=== PATIENT | male | born 1935 | race Caucasian/White ===

== ENCOUNTER 2016-03-09 17:46 | Emergency (ER) | payer OTHER ==
[~2016-03-09] VITALS: Wt 65.9 kg
[2016-03-09] MEDS ORDERED: ACETAMINOPHEN 500 MG TAB PO STA (18:49)
[2016-03-09] MEDS ORDERED: IBUPROFEN 600 MG TAB PO ONE (19:00)
[2016-03-09] MEDS ORDERED: UDROBDM PO (19:14)
[2016-03-09] MEDS ORDERED: DOXY100T20 PO (19:14)
[2016-03-09] MEDS ORDERED: THO25 PO (19:14)
[2016-03-09 19:27] VITALS: BP 128/63; PULSE 72; RESP 20; TEMP 99.1
--- NOTE | 2016-03-09 20:17 | ERD ---
ER Documentation Chief Complaint Date/Time DATE: 03/09/16 TIME: 20:10 Chief Complaint sore throat, hiccups x10 days HPI Patient is a 80-year-old male brought in by a relative. He has had a cough mucus sore throat for 4 days. He has a fever. 3 days ago he vomited however he has no more vomiting now. He has had intractable hiccups for 6 days. He has not seen a doctor in 2 years. He has no past medical history takes no medications and no allergies. ROS All systems reviewed and are negative except as per history of present illness. Medications Home Meds Active Scripts Guaifenesin-Dextromethorphan* (Robitussin* DM) 100MG/10MG/5ML Syrup, 5 ML PO Q6H Y for COUGH, #120 ML Prov:CRYSTAL CELESTIN DO 03/09/16 Chlorpromazine Hcl* (Thorazine*) 25 Mg Tab, 25 MG PO TID, #10 TAB Prov:CRYSTAL CELESTIN DO 03/09/16 Doxycycline Hyclate* (Doxycycline Hyclate*) 100 Mg Tablet.dr, 100 MG PO BID for 7 Days, TAB Prov:FAWADNICOLLECRYSTAL DO 03/09/16 PMhx/Soc Medical and Surgical Hx: pt denies Medical Hx, pt denies Surgical Hx Hx Alcohol Use: No Hx Substance Use: No Hx Tobacco Use: No Smoking Status: Never smoker Physical Exam Vitals Vital Signs Date Time Temp Pulse Resp B/P Pulse Ox O2 Delivery O2 Flow Rate FiO2 03/09/16 19:27 99.1 72 20 128/63 96 Room Air 03/09/16 17:58 100.7 76 20 150/71 97 Physical Exam Const: [Alert oriented 4, well-nourished well-developed nontoxic- appearing no apparent distress, interacts appropriately] continuous hiccups Head: [Normocephalic/atraumatic, no scalp lesions] Eyes: [Normal Conjunctiva, PERRLA, EOMI no conjunctival injection no conjunctival discharge] ENT: [Normal External Ears, Nose and Mouth, no tonsillar exudates no tonsillar erythema no tonsillar edema oropharynx no erythema. bilateral ear canals are patent, bilateral tympanic membranes nonerythematous.] Neck: [Full range of motion. No meningismus. No cervical lymphadenopathy] Resp: [Clear to auscultation bilaterally, no wheezes rhonchi or rales, breathing normally, no tachypnea no nasal flaring no grunting no accessory muscle use no retractions] Cardio: [Regular rate and rhythm, no murmurs] Abd: [Soft, non tender, non distended. Normal bowel sounds, no rebound rigidity or guarding. Normoactive bowel sounds no flank tenderness, negative McBurney's negative Ojeda sign.] Skin: [No petechiae or rashes, no hives no urticaria no abscess no laceration no new warmth] Back: [No midline or flank tenderness, full range of motion without pain ] Ext: [No cyanosis, clubbing or edema] Neuro: M/S: Alert and oriented 4. Face: EOMI, face and pharynx with normal sensation and function Motor: Normal strength throughout, muscle strength is 5 out of 5 bilateral upper extremity and bilateral lower extremity Sensation: Normal sensation throughout Speech: Normal Cerebel: Normal coordination Normal gait DTR: 2+ and symmetric upper/lower extremities Psych: [Normal Mood and Affect, no suicidal ideation or homicide ideation] Results 24 hrs Current Medications Medications (Trade) Dose Ordered Sig/Jeremi Route PRN Reason Start Time Stop Time Status Last Admin Dose Admin Acetaminophen (Tylenol Tab) 1,000 mg ONCE STAT PO 03/09/16 18:49 03/09/16 18:50 DC 03/09/16 19:01 Ibuprofen (Motrin) 600 mg ONCE ONCE PO 03/09/16 19:00 03/09/16 19:01 DC 03/09/16 19:01 Procedures/MDM I will treat him for bronchitis as he has had a fever for a few days and he has productive cough. Will give doxycycline. His lung sounds normal and his pulse ox is normal so less likely to be a pneumonia at this point. For the hiccups they have tried supportive care and so I will give him a trial of oral Thorazine. Differential includes pneumonia or pneumonitis or viral bronchitis or bacterial bronchitis or PE Departure Diagnosis: Primary Impression: Acute bronchitis Bronchitis organism: other organism Qualified Code: J20.8 - Acute bronchitis due to other specified organisms Additional Impression: Intractable hiccups Condition: Stable Patient Instructions: What Is Bronchitis?, Hiccups CRYSTAL CELESTIN DO Mar 09, 2016 20:17
== END 2016-03-09 19:35 | disposition home or self-care (01) ==
LOC: FTE 17:46
DX: J20.8 Acute bronchitis due to other specified organisms (principal); R06.6 Hiccough
CPT/HCPCS: 99284

== ENCOUNTER 2016-04-27 14:30 | Inpatient (IN) | payer OTHER ==
[~2016-04-27] VITALS: Ht 162.6 cm; Wt 62.6 kg
[~2016-04-27 14:30] MED LIST: DOXY100T20 PO; THO25 PO; UDROBDM PO
--- NOTE | 2016-04-27 15:10 | ERD ---
ER Documentation Chief Complaint Date/Time DATE: 04/27/16 TIME: 15:10 Chief Complaint weakness on b/l legs x 2 days with pain to rt side of neck HPI 81-year-old male with no significant previous medical history ambulatory to the ED with his daughter complaining of a 2 day history of generalized weakness and right-sided headache. He feels that below the knees his lower legs are weak especially and his granddaughter has noticed that he is having some difficulty walking. Denies visual changes or any other focal weakness or numbness. Gradual onset of sharp, right sided occipital headache which radiates down to the lateral side of his neck. No dizziness. No relieving or exacerbating factors. Denies URI symptoms, shortness of breath, cough or odynophagia. No chest pain or palpitations. No PND, orthopnea or exertional dyspnea. Denies leg pain or swelling. No fevers or chills. ROS All systems reviewed and are negative except as per history of present illness. Medications Home Meds Discontinued Scripts Guaifenesin-Dextromethorphan* (Robitussin* DM) 100MG/10MG/5ML Syrup, 5 ML PO Q6H Y for COUGH, #120 ML Prov:CRYSTAL CELESTIN DO 03/09/16 Chlorpromazine Hcl* (Thorazine*) 25 Mg Tab, 25 MG PO TID, #10 TAB Prov:CRYSTAL CELESTIN DO 03/09/16 Doxycycline Hyclate* (Doxycycline Hyclate*) 100 Mg Tablet.dr, 100 MG PO BID for 7 Days, TAB Prov:CRYSTAL CELESTIN DO 03/09/16 Allergies Allergies: Coded Allergies: No Known Allergy (Unverified , 04/27/16) PMhx/Soc Reviewed in chart. As per HPI. History of Surgery: No Anesthesia Reaction: No Hx Neurological Disorder: No Hx Respiratory Disorders: No Hx Cardiac Disorders: No Hx Psychiatric Problems: No Hx Miscellaneous Medical Probl: Yes (bronchitis) Hx Alcohol Use: No Hx Substance Use: No Hx Tobacco Use: No Smoking Status: Never smoker FmHx No diabetes, stroke or cancer. Physical Exam Vitals Vital Signs Date Time Temp Pulse Resp B/P Pulse Ox O2 Delivery O2 Flow Rate FiO2 04/27/16 14:54 72 16 130/82 100 Room Air 04/27/16 14:34 98.1 70 18 129/71 99 Physical Exam Const: Alert, elderly but in no acute distress. Head: Atraumatic Eyes: Pupils equal reactive to light. Normal Conjunctiva. Bilateral cataracts. ENT: Normal External Ears, Nose and Mouth. Pharynx is clear, mucous members are moist. No erythema or exudate. Neck: Full range of motion. No meningismus. Nontender. Full range of motion. No JVD. Resp: Breath sounds are equal and clear to auscultation bilaterally. No rales rhonchi or wheezes. Cardio: Regular rate and rhythm, no murmurs Abd: Soft, non tender, non distended. Normal bowel sounds Skin: No petechiae or rashes Back: No midline or flank tenderness Ext: No cyanosis, or edema. No calf swelling or tenderness. Pulses 4+ in all extremities. Neur: Awake and alert. Cranial nerves II through XII are grossly intact. Motor and sensory equal bilaterally. No pronator drift. Plantar reflexes are downgoing. Psych: Normal Mood and Affect. Patient does not appear anxious or depressed. Result Diagram: 04/27/16 1522 04/27/16 1522 Results 24 hrs Laboratory Tests Test 04/27/16 15:22 04/27/16 15:25 Alanine Aminotransferase (ALT/SGPT) 38IU/L Albumin 3.9g/dl Albumin/Globulin Ratio 1.50 Alkaline Phosphatase 113IU/L Anion Gap 16 Aspartate Amino Transf (AST/SGOT) 33IU/L Basophils # 0.010^3/ul Basophils % 0.5% Blood Urea Nitrogen 17mg/dl Calcium Level 9.4mg/dl Carbon Dioxide Level 29mmol/L Chloride Level 106mmol/L Creatinine 0.74mg/dl Direct Bilirubin 0.00mg/dl Eosinophils # 0.510^3/ul Eosinophils % 5.9% Globulin 2.60g/dl Glucose Level 84mg/dl Hematocrit 39.8% Hemoglobin 13.0g/dl Indirect Bilirubin 0.3mg/dl Lymphocytes # 1.710^3/ul Lymphocytes % 20.8% Mean Corpuscular Hemoglobin 28.6pg Mean Corpuscular Hemoglobin Concent 32.7g/dl Mean Corpuscular Volume 87.7fl Mean Platelet Volume 9.8fl Monocytes # 0.610^3/ul Monocytes % 7.7% Neutrophils # 5.310^3/ul Neutrophils % 64.9% Nucleated Red Blood Cells # 0.010^3/ul Nucleated Red Blood Cells % 0.0/100WBC Platelet Count 74667^3/UL Potassium Level 4.0mmol/L Red Blood Count 4.5410^6/ul Red Cell Distribution Width 13.4% Sodium Level 147mmol/L Thyroid Stimulating Hormone (TSH) 1.080MIU/L Total Bilirubin 0.3mg/dl Total Protein 6.5g/dl Troponin I < 0.012ng/ml White Blood Count 8.210^3/ul Activated Partial Thromboplast Time 29.0Sec INR International Normalized Ratio 0.98 Prothrombin Time 13.0Sec Prothrombin Time Ratio 1.0 Current Medications Medications (Trade) Dose Ordered Sig/Jeremi Route PRN Reason Start Time Stop Time Status Last Admin Dose Admin Dextrose/Sodium Chloride (D5-1/2ns) 1,000 ml @ 100 mls/hr Q10H IV 04/27/16 16:54 04/27/16 20:43 RHYTHM STRIP INTERPRETATION: Time: 15:08. Sinus rhythm. Ventricular rate 76. No ectopy. Indication: Weakness. EKG: Time: 15:20. Sinus rhythm. Ventricular rate 74, normal IL and QRS intervals. No acute ST segment elevation or depression. No axis deviation or ectopy. EP Impression: Normal EKG IMAGING: PROCEDURE: CT brain without contrast CLINICAL INDICATION: Headache TECHNIQUE: CT scan of the Brain without contrast was performed on the high- resolution multi-slice CT scanner. Contiguous 5 mm slice thickness transaxial images were acquired from the high vertex to the foramen magnum. The images were reviewed on a PACS workstation. CTDI equals 51.78 mGy. Total exam DLP equals 828.43 mGy-cm. COMPARISON: No prior studies are available for comparison. FINDINGS: There are acute bilateral subdural hematomas which measure up to 1.4 cm on the left side and 1.0 cm on the right side. There is 3 mm of midline shift to the right side. There is no cerebral edema or hydrocephalus. The basilar cisterns are patent. The urena-white junction is preserved. The visualized paranasal sinuses and mastoid air cells are clear. The orbits are unremarkable. The calvarium is intact. No scalp abnormalities are seen. IMPRESSION: 1. Acute bilateral subdural hematomas with minimal midline shift to the right side. Findings were discussed with Dr. Young 04/27/2016 at 1550 hours. RPTAT: QQ .Praneeth Koehler MD, MD Date Time Electronically viewed and signed by .Praneeth Koehler MD, on 04/27/2016 15: 54 .M/ PROCEDURE: XR Chest. CLINICAL INDICATION: Weakness TECHNIQUE: Chest AP portable COMPARISON: None available FINDINGS: The mediastinal structures are unremarkable. There is calcification of the thoracic aorta (consistent with atherosclerosis). The heart is normal in size and configuration. The pulmonary vascularity is normal. The lung castillo are unremarkable. No consolidation is identified. The pleural spaces are unremarkable. There are senescent changes of the axial skeleton. IMPRESSION: Calcification of the thoracic aorta (consistent with atherosclerosis). No evidence for active cardiopulmonary disease. RPTAT: HGDB .Frank Maria MD, Date Time Electronically viewed and signed by .Frank Maria MD, on 04/27/2016 15:44 .B/ Procedures/MDM DOCUMENTS REVIEWED: ED nurse, prior ED MEDICAL DECISION MAKIN-year-old male with no significant previous medical history ambulatory to the ED with his daughter complaining of a 2 day history of generalized weakness and right-sided headache. CT reveals acute bilateral subdural hematomas left greater than right with 3 mm of shift to the right side. There is no hydrocephalus or cerebral edema. Patient vehemently denies history of trauma or injury. Neurosurgery consult obtained. Admit to ICU for further evaluation and management. Counseled patient and family regarding diagnostic workup, diagnosis and need for admission. CALLS/CONSULTS: Time 16:07, Neurosurgery Dr. Cohn. CALLS/CONSULTS: Time 16:10, Dr. Elkins. DISPOSITION: ICU PATIENT CARE TRANSITIONED: Time: 16:10, Dr. Elkins. CRITICAL CARE TIME: Due to the high probability of sudden clinically significant neurologic and hemodynamic deterioration, this patient with acute, bilateral subdural hematomas required multiple, frequent reevaluations of vital signs, neurologic status and response to therapy. Additional critical care time was spent in obtaining supplemental history from family and consultation with neurology the admitting physician Dr. Elkins. TOTAL CRITICAL CARE TIME: 35 minutes not including other separately reportable procedures. Departure Diagnosis: Primary Impression: Acute subdural hematoma Condition: Critical BRITTANY YOUNG MD Apr 27, 2016 15:10
[2016-04-27 15:25] LABS: ADD SCAN DIFF NO
[2016-04-27 15:30] LABS: BASOPHILS % 0.5 % (0.0-2.0); EOSINOPHILS # 0.5 10^3/ul (0.0-0.5); EOSINOPHILS % 5.9 % (0.0-7.0); HEMATOCRIT 39.8 % (42.0-52.0); LYMPHOCYTES # 1.7 10^3/ul (0.8-2.9); LYMPHOCYTES % 20.8 % (15.0-51.0); MEAN CORPUSCULAR HEMOGLOBIN 28.6 pg (29.0-33.0); MEAN CORPUSCULAR HGB CONC 32.7 g/dl (32.0-37.0); MEAN CORPUSCULAR VOLUME 87.7 fl (82.0-101.0); MEAN PLATELET VOLUME 9.8 fl (7.4-10.4); MONOCYTE # 0.6 10^3/ul (0.3-0.9); MONOCYTES % 7.7 % (0.0-11.0); NEUTROPHIL # 5.3 10^3/ul (1.6-7.5); NEUTROPHILS % 64.9 % (39.0-77.0); PLATELET COUNT 238 10^3/UL (140-415); RED BLOOD COUNT 4.54 10^6/ul (4.70-6.10); RED CELL DISTRIBUTION WIDTH 13.4 % (11.5-14.5); WHITE BLOOD COUNT 8.2 10^3/ul (4.8-10.8)
[2016-04-27 15:40] LABS: ALBUMIN 3.9 g/dl (3.3-4.9); CHLORIDE 106 mmol/L (97-110)
[2016-04-27 15:41] LABS: SODIUM 147 mmol/L (135-144)
[2016-04-27 15:43] LABS: ALANINE AMINOTRANSFERASE 38 IU/L (13-69); ALKALINE PHOSPHATASE 113 IU/L (42-121); ANION GAP 16 (8-16); ASPARTATE AMINO TRANSFERASE 33 IU/L (15-46); BILIRUBIN,INDIRECT 0.3 mg/dl (0-1.1); BILIRUBIN,TOTAL 0.3 mg/dl (0.2-1.3); BLOOD UREA NITROGEN 17 mg/dl (7-20); CARBON DIOXIDE 29 mmol/L (21-31); CREATININE 0.74 mg/dl (0.61-1.24); GLUCOSE 84 mg/dl (70-220); TOTAL PROTEIN 6.5 g/dl (6.1-8.1)
[2016-04-27 15:44] LABS: CALCIUM 9.4 mg/dl (8.4-10.2)
--- NOTE | 2016-04-27 15:44 | RADRPT ---
PROCEDURE: XR Chest. CLINICAL INDICATION: Weakness TECHNIQUE: Chest AP portable COMPARISON: None available FINDINGS: The mediastinal structures are unremarkable. There is calcification of the thoracic aorta (consiste nt with atherosclerosis). The heart is normal in size and configuration. The pulmonary vascularity is normal. The lung castillo are unremarkable. No consolidation is identified. The pleural spaces are unremarkable. There are senescent changes of the axial skeleton. IMPRESSION: Calcification of the thoracic aorta (consistent with atherosclerosis). No evidence for active cardiopulmonary disease. RPTAT: HGDB .Frank Maria MD, MD Date Time Electronically viewed and signed by .Frank Maria MD, on 04/27/2016 15:44 .B/
--- NOTE | 2016-04-27 15:54 | RADRPT ---
PROCEDURE: CT brain without contrast CLINICAL INDICATION: Headache TECHNIQUE: CT scan of the Brain without contrast was performed on the high-resolution multi-slice CT scanner. Contiguous 5 mm slice thickness transaxial images were acquired from the high vertex to the foramen magnum. The images were reviewed on a PACS workstation. CTDI equals 51.78 mGy. Total e xam DLP equals 828.43 mGy-cm. COMPARISON: No prior studies are available for comparison. FINDINGS: There are acute bilateral subdural hematomas which measure up to 1.4 cm on the left side and 1.0 cm on the right side. There is 3 mm of midline shift to the right side. There is no cerebral edema or hydrocephalus. The basilar cisterns are patent. The urena-white junction is preserved. The visualized paranasal sinuses and mastoid air cells are clear. The orbits are unremarkable. The calvarium is intact. No scalp abnormalities are seen. IMPRESSION: 1. Acute bilateral subdural hematomas with minimal midline shift to the right side. Findings were discussed with Dr. Pan 04/27/2016 at 1550 hours. RPTAT: QQ .Praneeth Koehler MD, Date Time Electronically viewed and signed by .Praneeth Koehler MD, on 04/27/2016 15:54 .M/
[2016-04-27 15:57] LABS: TROPONIN-I < 0.012 ng/ml (0.00-0.12)
[2016-04-27 16:14] LABS: INR 0.98
[2016-04-27] MEDS ORDERED: DOCUSATE SODIUM 100 MG CAP PO PRN (17:00)
[2016-04-27] MEDS ORDERED: ACETAMINOPHEN 325 MG TAB PO PRN (17:00)
[2016-04-27] MEDS ORDERED: LABETALOL HCL 20MG INJ IV PRN (17:00)
[2016-04-27] MEDS ORDERED: NACL 0.9% 3 ML SYG IV SCH (17:00)
[2016-04-27] MEDS ORDERED: morphine 2 MG INJ IV PRN (17:00)
[2016-04-27] MEDS ORDERED: ONDANSETRON 4 MG INJ IV PRN (17:00)
[2016-04-27 17:23] LABS: ADD UMIC NO; URINE BILIRUBIN (Dip) NEGATIVE (NEGATIVE); URINE BLOOD (Dip) NEGATIVE (NEGATIVE); URINE COLOR LT. YELLOW (YELLOW); URINE GLUCOSE (Dip) NEGATIVE (NEGATIVE); URINE KETONES (Dip) NEGATIVE (NEGATIVE); URINE LEUKOCYTE ESTERASE (Dip) NEGATIVE (NEGATIVE); URINE NITRITE (Dip) NEGATIVE (NEGATIVE); URINE TOTAL PROTEIN (Dip) NEGATIVE (NEGATIVE); URINE UROBILINOGEN (Dip) 0.2 E.U./dL (0.1-1.0)
--- NOTE | 2016-04-27 18:25 | HP ---
DATE OF ADMISSION: 04/27/2016 CHIEF COMPLAINT: Headache and weakness in the lower extremities. HISTORY OF PRESENT ILLNESS: The patient is a 81-year-old male with no medical history. The patient states that starting today he had weakness in both lower extremities, also had headache on the righ t side. His granddaughter noticed that he was walking abnormally. Presented to the ER where he had a CT head that showed an acute bilateral subdural hematomas with minimal midline shift to the right side. Neurosurgery has been paged and waiting for the callback. The patient will be admitted to [facility] ICU. He has no other complaints at this time. Denies any falls, denies any history of hypertens ion. Denies any recent trauma. PAST MEDICAL HISTORY: Denies. PAST SURGICAL HISTORY: Denies. HOME MEDICATIONS: None. ALLERGIES: NO KNOWN DRUG ALLERGIES. FAMILY HISTORY: Denies. SOCIAL HISTORY: Denies alcohol, tobacco, or drug abuse. Lives with a family friend. REVIEW OF SYSTEMS: A 12-point review of systems negative except as in HPI. PHYSICAL EXAMINATION: VITAL SIGNS: Temperature is 98.1, pulse 72, respiratory rate 16, BP is 130/82, saturation 100% on r oom air. GENERAL: No acute distress. Alert and oriented. Monegasque speaking. HEENT: Normocephalic, atraumatic. Pupils equal, round, and reactive to light. LUNGS: Clear to auscultation. CARDIOVASCULAR: Regular rate and rhythm. ABDOMEN: Nondistended, nontender, soft. EXTREMITIES: No clubbing, cyanosis, or edema. LABORATORIES: White count 8.3, hemoglobin 13.0, platelets are 238. Chemistry within normal limits except for sodium 147. INR is 0.98. DIAGNOSTICS: Chest x-ray: Atherosclerosis. No evidence for active cardiopulmonary disease. Brain CT shows acute bilateral subdural hematomas with minimal midline shift to the right side. ASSESSMENT AND PLAN: 1. Intracranial hemorrhage with bilateral subdural hematomas with midline shift. Neurosurgery with Dr. Cohn has been paged and awaiting for callback. The patient will be admitted to the ICU. Th e patient denies any fall or trauma. The patient does have some weakness in the lower extremities. He had been ambulating normally according to the granddaughter. Will follow up with neurosurgery r ecommendations. Blood pressure is currently stable. 2. Normocytic anemia. This is very mild. We will monitor. 3. Hypernatremia. Will treat with IV fluids. The patient will be n.p.o. 4. Prophylaxis. Sequential compression devices. Dictated By: CORNELIO REYES/SAMAN Conf#: [id number] DID#: [id number]
--- NOTE | 2016-04-27 19:36 | RADRPT ---
PROCEDURE: MRI Brain without contrast. CLINICAL INDICATION: Bilateral subdural hematomas. TECHNIQUE: MRI of the brain was performed with the following sequences obtained: Sagittal, coronal and axial T1-weighted, axial T2-weighted, axial FLAIR, axial diffusion weighted (with ADC map), and coronal GRE. COMPARISON: CT brain 04/27/2016 FINDINGS: The diffusion sequence is normal with no evidence for acute infarct. 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 The uniform signal of the right subdural hematoma has a pattern consistent with a subacute to chronic subdural hematoma. The thickness of the subdural hematomas is relatively symm etric estimated at 1.9 cm on the coronal gradient echo series. There are some areas of low signal i ntensity in each subdural hematoma on the gradient echo sequence suggesting hemosiderin deposition. The midline shift of the septum placenta the right is estimated at 2 mm. There is no evidence of h erniation or intraparenchymal hematoma. The ventricular system and sulci are normal. No signal alteration is present within the brainstem or cerebellum. The fourth ventricle is midline and the craniocervical junction lesion is intact. The area of the sella is normal. The bony calvarium and skull base are intact. The visualized paranasal sinuses and mastoid air cell s are clear. Physiologic flow voids within the internal carotid and vertebral arteries are maintain ed. RPTAT:HJJR IMPRESSION: 1. Bilateral subdural hematomas with mixed signal intensity of the left collection consistent with a cute upon subacute to chronic blood products, the homogeneous signal intensity within the right subd ural hematoma is consistent with subacute to chronic timing. The appearance is stable compared to th e CT from earlier the same day allowing for the different modalities. 2. The mass effect upon the cerebral hemispheres causes approximately 2 mm of midline shift to the r ight. There is no evidence of hydrocephalous. No intraparenchymal contusion is present. 3. No ischemic infarct is demonstrated. Physician Danisha Date Time Electronically viewed and signed by Physician Danisha on 04/27/2016 19:36 /
[2016-04-27 19:45] VITALS: BP 126/86; PULSE 67; RESP 17
[2016-04-27 19:53] VITALS: Ht 162.6 cm; Wt 62.6 kg
[2016-04-27 20:00] VITALS: BP 135/79; PULSE 65; PULSE 72; RESP 19
[2016-04-27 20:30] LABS: COLLAGEN/ADP 90 Secs. (40-147)
[2016-04-27] MEDS: DEXTROSE 5%-0.45% NACL 1,000 ML IV SCH (20:43)
[2016-04-27 21:00] VITALS: BP 126/73; PULSE 75; RESP 21
[2016-04-27] MEDS: LEVETIRACETAM 500 MG TAB PO SCH (21:06)
[2016-04-27 22:00] VITALS: BP 101/56; PULSE 66; RESP 17
[2016-04-27 23:00] VITALS: BP 118/82; PULSE 60; RESP 14
--- NOTE | 2016-04-27 23:03 | CONS ---
DATE OF ADMISSION: 04/27/2016 DATE OF CONSULTATION: 04/27/2016 TYPE OF CONSULTATION: Neurosurgical. REQUESTING PHYSICIAN: Dr. Miguel Pan INDICATION FOR CONSULTATION: Subdural hematoma. HISTORY OF PRESENT ILLNESS: The patient is a 81-year-old right-handed male without significant past medical history who reports 2 days of a pressure on the right side of his head, some dizziness and difficulty walking with a feeling of weakness below his knees. The patient denies any head trauma and actually denies any focal headache, only a pressure on the right side of his head. He states that these symptoms have only been present for 2 days, although his family reports that 2 years ago the patient went to [facility] with similar symptoms but was given some medications and discharged, and his symptoms resolved. The patient otherwise denies any chest pain, shortness of breath, numbness, tingling, weakness, bowel or bladder issues. A CT scan of the brain was performed. I reviewed this study as well as the radiologist's results. The CT showed subacute on possibly chronic bilateral subdural hematomas with some minimal midline shift right to left. I reviewed the radiologist's result interpreted by Dr. Praneeth Koehler, who stated there are acute bilateral subdural hematomas with minimal midline shift. The left-sided subdural measures 1.4 cm on the left and 1.0 on the right. He reports there is 3 mm of midline shift. There is no cerebral edema or hydrocephalus. Basal cisterns are patent. The urena/white matter junction is preserved. There is also no evidence of fracture. There is no evidence of calvarial soft-tissue abnormalities. Additional history was obtained from the patient's daughter and . PAST MEDICAL HISTORY: Significant for acute bronchitis for which the patient was admitted to [facility] approximately 6 weeks ago. He otherwise denies any history of hypertension, diabetes, gastrointestinal, renal or bleeding issues. REVIEW OF SYSTEMS: A 12-point review of systems performed. Pertinent positives and negatives listed in the history of present illness and below. CONSTITUTIONAL: Denies any fevers, chills or weight loss. HEMATOLOGIC: Denies any history of easy bruising or bleeding. SOCIAL HISTORY: The patient is . He is a nonsmoker, nondrinker, denies any illicit drug use. MEDICATIONS: The patient denies taking any outpatient regular medications except for some [id number] eyedrops that he takes that he cannot remember the name of. He states he took this for a period of time and then stopped a few days ago. FAMILY HISTORY: Denies any history of inherited bleeding disorders in the family. ALLERGIES: NO KNOWN DRUG ALLERGIES. PHYSICAL EXAMINATION: VITAL SIGNS: Temperature 98.1, blood pressure 138/90, pulse 76, respirations 19 , saturating 100% on room air. GENERAL: The patient is an elderly, thin but spry-appearing male lying in the hospital bed in no acute distress. HEAD AND NECK: Normocephalic, atraumatic. His neck is supple. CHEST: Clear to auscultation bilaterally. CARDIOVASCULAR: Regular rate and rhythm. 2+ radial and dorsalis pedis pulses. No carotid bruit bilaterally. ABDOMEN: Nontender, nondistended, soft. EXTREMITIES: No clubbing, cyanosis or edema. NEUROLOGIC: The patient is awake, alert and oriented x3. His speech is fluent. He follows commands readily and appropriately. He has normal attention and concentration. He has intact remote, immediate and recent memory. His speech is fluent. Cranial nerves II through XII are serially tested and are intact, specifically II: Grossly normal visual acuity and visual castillo full to confrontation. III, IV and : Extraocular muscles intact. Pupils equal, reactive, round to light (although the patient does have bilateral cataracts). V: Normal facial sensation bilaterally. VII: Face symmetric dynamically and statically. VIII: Grossly normal auditory acuity to finger rub and normal voice. IX: Symmetrical palate raise. XI: 5/5 sternocleidomastoid and shoulder shrug. XII: No tongue deviation when protruded. Motor exam: 5/5 bilateral upper and lower extremities. The patient has no pronator drift. Cerebellar: The patient has no ataxia or dysmetria with [id number]-[id number] or surmeq-if-frmpko testing. Sensation grossly intact. Deep tendon reflexes 1+. No clonus, Babinski or Banuelos sign. Gait not assessed secondary to situation. LABORATORY DATA: White count 8.2, hemoglobin 13, platelets 138. There is no shift. His chemistry: Sodium 147, BUN and creatinine 17 and 1.74 with a glucose of 84. Urinalysis was negative. His coagulation panel was normal with a PT of 13, INR of 0.98 and an APT of 29. IMAGING: I reviewed the patient's radiographic results as documented in the history of present illness. ASSESSMENT AND PLAN: A 81-year-old male with bilateral subdural hematomas. I discussed the patient's signs, symptoms, physical exam, radiographic findings with the patient, his granddaughter and his . I discussed underlying pathology, namely subdural hematoma, discussed acute, subacute and chronic. I explained that the patient is likely having symptoms from the presence of these lesions that are causing pressure on the patient's brain. I explained that the patient appeared to have surgical lesions. I explained that this was because of these appear to be fairly large and there appear to be membranes present, most significant in the left, though the right appears to be fairly predominantly liquid. I discussed the risks, benefits and alternatives of surgical intervention in detail with the patient. I recommend bur hole with possible craniotomies bilaterally. I explained that the right side appears to be predominantly without significant membranes and more homogenous on the CT to suggest that this may be more amenable to simply bur holes. However, the right side is likely to require craniotomy given the membranes present. I would like to get an MRI of the brain to better assess this as well as other reasons for the occurrence of these lesions. The patient denies any history of easy bruising or bleeding or taking any medications that might predispose him to such a bleed occurring. He also denies any recent trauma. Therefore, it is unclear why these are present. Nevertheless, they are symptomatic and will likely progress and potentially cause herniation or if they are left untreated. I discussed the risks including recurrence of subdural hematomas; infection either externally of the bone such as osteomyelitis, or ventriculitis and meningitis; spinal fluid leak; hydrocephalus; stroke and any cognitive or motor issues associated with this as well as the risks of general anesthesia including deep vein thrombosis; cardiac arrhythmias; pneumonia and . I discussed the approximate procedure time and typical postoperative course. I discussed the potential risk for seizures, and therefore the patient will be placed on seizure prophylaxis with Keppra. The patient and family were given the opportunity to ask any questions regarding this procedure. The patient will likely be scheduled for surgery tomorrow, although he should be evaluated by medical service for clearance and optimization. The patient and his family expressed understanding and agreement with this plan of care. The patient is currently being admitted to the ICU. Thank you for allowing me to participate in the care of this patient. Dictated By: HENNA GREENFIELD MD, LG/SAMAN Conf#: [id number] DID#: [id number] LAUREL
[2016-04-28] VITALS (25 sets, daily range): BP systolic 90–129; BP diastolic 52–82; PULSE 58–83; RESP 10–20
[2016-04-28] MEDS: DEXTROSE 5%-0.45% NACL 1,000 ML IV SCH ×3 (05:58→22:54)
[2016-04-28 06:01] LABS: ADD SCAN DIFF NO
[2016-04-28 06:06] LABS: BASOPHIL # 0.1 10^3/ul (0.0-0.1); BASOPHILS % 0.7 % (0.0-2.0); EOSINOPHILS # 0.7 10^3/ul (0.0-0.5); EOSINOPHILS % 9.1 % (0.0-7.0); HEMATOCRIT 40.1 % (42.0-52.0); HEMOGLOBIN 13.5 g/dl (14.0-18.0); LYMPHOCYTES # 1.2 10^3/ul (0.8-2.9); LYMPHOCYTES % 16.6 % (15.0-51.0); MEAN CORPUSCULAR HEMOGLOBIN 29.2 pg (29.0-33.0); MEAN CORPUSCULAR HGB CONC 33.7 g/dl (32.0-37.0); MEAN CORPUSCULAR VOLUME 86.8 fl (82.0-101.0); MEAN PLATELET VOLUME 9.8 fl (7.4-10.4); MONOCYTE # 0.5 10^3/ul (0.3-0.9); MONOCYTES % 7.3 % (0.0-11.0); NEUTROPHIL # 4.8 10^3/ul (1.6-7.5); PLATELET COUNT 229 10^3/UL (140-415); RED BLOOD COUNT 4.62 10^6/ul (4.70-6.10); RED CELL DISTRIBUTION WIDTH 13.4 % (11.5-14.5); WHITE BLOOD COUNT 7.3 10^3/ul (4.8-10.8)
[2016-04-28 06:21] LABS: CREATININE 0.63 mg/dl (0.61-1.24)
[2016-04-28 06:22] LABS: CALCIUM 9.1 mg/dl (8.4-10.2); CHOL/HDL RATIO 4.2 RATIO; PHOSPHORUS 2.9 mg/dl (2.5-4.9)
[2016-04-28] MEDS: LEVETIRACETAM 500 MG TAB PO SCH ×2 (09:13→23:42)
--- NOTE | 2016-04-28 09:53 | PN ---
Date/Time of Note Date/Time of Note DATE: 04/28/16 TIME: 09:51 Assessment/Plan VTE Prophylaxis VTE Prophylaxis Intervention: SCD's Lines/Catheters IV [facility] Saline Lock Assessment/Plan Chief Complaint/Hosp Course ASSESSMENT AND PLAN: 1. Intracranial hemorrhage with bilateral subdural hematomas with midline shift. Neurosurgery with Dr. Cohn has been consulted. Will follow up with neurosurgery recommendations for surgical intervention. Blood pressure is currently stable. 2. Normocytic anemia. This is very mild. We will monitor. 3. Hypernatremia. Will treat with IV fluids. The patient will be n.p.o. 4. Prophylaxis. Sequential compression devices. We will continue monitor patient closely for recommendation management treatment as clinical course Critical time spent 45 minutes Problems: Subjective 24 Hr Interval Summary Free Text/Dictation Patient denies of any headache or lightheadedness or dizziness No change in visual acuity Denies of any chest pain or shortness of breath Exam/Review of Systems Vital Signs Vitals Vital Signs Date Time Temp Pulse Resp B/P Pulse Ox O2 Delivery O2 Flow Rate FiO2 04/28/16 08:00 60 04/28/16 06:00 17 99/55 97 Room Air 04/28/16 04:00 97.4 04/27/16 17:41 2.0 Intake and Output 04/27/16 04/27/16 04/28/16 15:00 23:00 07:00 Intake Total 425 ml 775 ml Output Total 900 ml Balance 425 ml -125 ml Exam General: The patient is well-developed, Not in acute distress. HEENT: Atraumatic, normocephalic. The pupils are equal and round . Neck: Supple with full range of motion. Chest: Normal expansion of the thorax during inspiration Lungs: Clear to auscultation bilaterally Heart: Normal S1-S2, Regular rhythm and rate. Abdomen: Soft , nontender, nondistended , bowel sounds are present. Extremities: Normal to inspection, no edema no cyanosis Neurologic: Normal mental status,The patient is awake, alert and oriented . Results Result Diagram: 04/28/16 0530 04/28/16 0530 Results 24 hrs Laboratory Tests Test 04/27/16 15:22 04/27/16 15:25 04/27/16 17:09 04/27/16 17:52 Alanine Aminotransferase (ALT/SGPT) 38 Albumin 3.9 Albumin/Globulin Ratio 1.50 Alkaline Phosphatase 113 Anion Gap 16 Aspartate Amino Transf (AST/SGOT) 33 Basophils # 0.0 Basophils % 0.5 Blood Urea Nitrogen 17 Calcium Level 9.4 Carbon Dioxide Level 29 Chloride Level 106 Creatinine 0.74 Direct Bilirubin 0.00 Eosinophils # 0.5 Eosinophils % 5.9 Globulin 2.60 Glucose Level 84 Hematocrit 39.8 L Hemoglobin 13.0 L Indirect Bilirubin 0.3 Lymphocytes # 1.7 Lymphocytes % 20.8 Mean Corpuscular Hemoglobin 28.6 L Mean Corpuscular Hemoglobin Concent 32.7 Mean Corpuscular Volume 87.7 Mean Platelet Volume 9.8 Monocytes # 0.6 Monocytes % 7.7 Neutrophils # 5.3 Neutrophils % 64.9 Nucleated Red Blood Cells # 0.0 Nucleated Red Blood Cells % 0.0 Platelet Count 238 Potassium Level 4.0 Red Blood Count 4.54 L Red Cell Distribution Width 13.4 Sodium Level 147 H Thyroid Stimulating Hormone (TSH) 1.080 Total Bilirubin 0.3 Total Protein 6.5 Troponin I < 0.012 White Blood Count 8.2 Activated Partial Thromboplast Time 29.0 INR International Normalized Ratio 0.98 Prothrombin Time 13.0 Prothrombin Time Ratio 1.0 Urine Bilirubin NEGATIVE Urine Clarity CLEAR Urine Color LT. YELLOW Urine Glucose NEGATIVE Urine Hemoglobin NEGATIVE Urine Ketones NEGATIVE Urine Leukocyte Esterase NEGATIVE Urine Nitrite NEGATIVE Urine Specific [place] 1.020 Urine Total Protein NEGATIVE Urine Urobilinogen 0.2 E.U./dL Urine pH 7.0 Platelet Func Collagen/Epinephrine 225 H Platelet Function Collagen/ADP 90 Test 04/27/16 21:03 04/28/16 05:30 Platelet Func Collagen/Epinephrine 163 Platelet Function Collagen/ADP Anion Gap 12 Basophils # 0.1 Basophils % 0.7 Blood Urea Nitrogen 11 Calcium Level 9.1 Carbon Dioxide Level 25 Chloride Level 107 Cholesterol Level 158 Cholesterol/HDL Ratio 4.2 Creatinine 0.63 Eosinophils # 0.7 H Eosinophils % 9.1 H Glucose Level 100 HDL Cholesterol 37 Hematocrit 40.1 L Hemoglobin 13.5 L Hemoglobin A1c 5.5 LDL Cholesterol, Calculated 97 Lymphocytes # 1.2 Lymphocytes % 16.6 Magnesium Level 2.0 Mean Corpuscular Hemoglobin 29.2 Mean Corpuscular Hemoglobin Concent 33.7 Mean Corpuscular Volume 86.8 Mean Platelet Volume 9.8 Monocytes # 0.5 Monocytes % 7.3 Neutrophils # 4.8 Neutrophils % 66.0 Nucleated Red Blood Cells # 0.0 Nucleated Red Blood Cells % 0.0 Phosphorus Level 2.9 Platelet Count 229 Potassium Level 4.0 Red Blood Count 4.62 L Red Cell Distribution Width 13.4 Sodium Level 140 Triglycerides Level 122 White Blood Count 7.3 Medications Medications Current Medications Dextrose/Sodium Chloride (D5-1/2ns) 1,000 ml @ 100 mls/hr Q10H IV Last administered on 04/28/16 05:58; Admin Dose 100 MLS/HR; Start 04/27/16 at 16:54 Ondansetron HCl (Zofran Inj) 4 mg Q6H PRN IV NAUSEA AND/OR VOMITING; Start 04/27 at 17:00 Acetaminophen (Tylenol Tab) 650 mg Q6H PRN PO PAIN LEVEL 1-3 OR FEVER; Start at 17:00 Acetaminophen/ Hydrocodone Bitart ([place] (5/325)) 1 tab Q6H PRN PO MODERATE PAIN LEVEL 4-6; Start 04/27/16 at 17:00 Morphine Sulfate (morphine) 2 mg Q4H PRN IV SEVERE PAIN LEVEL 7-10; Start at 17:00 Docusate Sodium (Colace) 100 mg Q12H PRN PO CONSTIPATION; Start 04/27/16 at 17: 00 Labetalol HCl (Labetalol) 20 mg Q2 PRN IV SBP>170; Start 04/27/16 at 17:00 Levetiracetam 500 mg 500 mg BID PO Last administered on 04/28/16 09:13; Admin Dose 500 MG; Start 04/27/16 at 21:00 Cefazolin Sodium (Ancef 1 Gm/50 ml (Pmx)) 50 ml @ 100 mls/hr ONCE IVPB ; Start 04/28/16 at 17:00; Stop 04/28/16 at 17:29 KENNY INFANTE MD Apr 28, 2016 09:53
[2016-04-28] MEDS ORDERED: THROMBIN 5000 UNIT VIAL ONE (16:42)
[2016-04-28] MEDS ORDERED: POVIDONE IODINE 10% 28.4 GM OINT ONE (16:42)
[2016-04-28] MEDS ORDERED: BACITRACIN 0.9 GM OINT ONE (16:42)
[2016-04-28] MEDS ORDERED: GELATIN SIZE 100 SPONGE ONE (16:42)
[2016-04-28] MEDS ORDERED: LIDOCAINE 0.5%/EPI (MDV) 50 ML INJ ONE (16:45)
[2016-04-28] MEDS ORDERED: CEFAZOLIN 1 GM/50 ML (PMX) 50 ML IVPB SCH (17:00)
[2016-04-28] MEDS ORDERED: MIDAZOLAM 1 MG/ML 2 ML INJ ONE (18:16)
[2016-04-28] MEDS ORDERED: PHENYLephrine (100 MCG/ML) 5ML SYG ONE (18:31)
[2016-04-28] MEDS ORDERED: BACITRACIN 50000 UNITS INJ ONE (18:56)
[2016-04-28] MEDS ORDERED: DIPHENHYDRAMINE 50 MG INJ IV PRN (19:30)
[2016-04-28] MEDS ORDERED: ONDANSETRON 4 MG INJ IV PRN ×2 (19:30→22:30)
[2016-04-28] MEDS ORDERED: morphine (1 MG/ML) 10ML SYRINGE IV PRN (19:30)
[2016-04-28] MEDS ORDERED: FENTAnyl 50 MCG/ML VIAL IV PRN (19:30)
[2016-04-28] MEDS ORDERED: LIDOCAINE 2% (SDV) 5 ML INJ ONE (21:37)
[2016-04-28] MEDS ORDERED: ROCURONIUM 50 MG INJ ONE (21:37)
[2016-04-28] MEDS ORDERED: ETOMIDATE 20 MG INJ ONE (21:37)
[2016-04-28] MEDS ORDERED: ONDANSETRON 4 MG INJ ONE (21:38)
[2016-04-28] MEDS ORDERED: GLYCOPYRROLATE 1 MG INJ ONE (21:39)
[2016-04-28] MEDS ORDERED: NEOSTIGMINE 3 MG/3 ML SYRINGE ONE (21:39)
--- NOTE | 2016-04-28 22:25 | OPPN ---
Date/Time of Note Date/Time of Note DATE: 04/28/16 TIME: 22:18 Operative/Procedure Note Pre-Operative Diagnosis bilateral subdural hematoma Post-Operative Diagnosis bilateral subdural hematoma Procedure 1.left craniotomy for subdural hematoma evacuation. 2 Right agustin holes for subdural hematoma evacuation. Surgeon: HENNA GREENFIELD MD Anesthesiologist: EVA BARRETO MD Findings left subacute/ chronic, right chronic subdural hematoma Implants/Grafts: Not applicable Estimated blood loss: 50 - 100 ml's Drains bilateral subdural drains. Specimens: Not Applicable Complications: None Anesthesia type: general HENNA GREENFIELD MD Apr 28, 2016 22:25
[2016-04-28] MEDS ORDERED: CEPASTAT LOZENGE MT PRN (22:30)
[2016-04-28] MEDS ORDERED: HYDROCODONE/APAP (5/325) TAB PO PRN (22:30)
[2016-04-28] MEDS ORDERED: ACETAMINOPHEN 325 MG TAB PO PRN (22:30)
[2016-04-28] MEDS: CEFAZOLIN 2 GM/50 ML (PMX) 50 ML IVPB SCH (23:25)
[2016-04-28] MEDS: D5-NS + KCL 20 MEQ 1,000 ML IV SCH (23:25)
[2016-04-29] VITALS (29 sets, daily range): BP systolic 63–132; BP diastolic 46–87; PULSE 61–86; RESP 13–22
[2016-04-29] MEDS: morphine 2 MG INJ IV PRN ×3 (00:27→08:19)
--- NOTE | 2016-04-29 03:38 | OPR ---
DATE OF OPERATION: 04/28/2016 PREOPERATIVE DIAGNOSIS: Bilateral subdural hematomas. POSTOPERATIVE DIAGNOSIS: Bilateral subdural hematomas. OPERATION PERFORMED: 1. Left craniotomy for subdural evacuation of hematoma. 2. Right bur hole for subdural evacuation of hematoma. SURGEON: Henna Greenfield MD ANESTHESIOLOGIST: Burak Gaston MD ANESTHESIA: General endotracheal. CONDENSER CLEANER: None. ESTIMATED BLOOD LOSS: 100 mL DRAINS PLACED: Bilateral subdural drains. FINDINGS: Left subacute/chronic subdural hematoma, right chronic subdural hematoma. SPECIMEN COLLECTED: None. COMPLICATIONS: None. TYPE OF ANESTHESIA: General endotracheal. INDICATIONS: The patient is a 81-year-old male with 2 days of headaches, dizziness, and weakness. CT and MRI revealed chronic subacute/chronic subdural hematoma, left, and right chronic subdural hematoma with mass effect and shift. The risks, benefits, and alternatives of surgical intervention were discussed with the patient who elected for surgery. DESCRIPTION OF PROCEDURE: The patient was brought to the OR. He was sedated, intubated, and anesthesia successfully induced. The patient was placed in supine position on the table. He was sterilely prepped and draped on both sides of his head. Sequential compressive devices were placed. A Crockett catheter had already been inserted. Perioperative antibiotics were given. The procedure commenced with the patient's left-side up to perform a craniotomy. The patient was sterilely prepped and draped. After surgical time-out, the procedure commenced. A 10 blade knife was used to make a straight incision over the frontoparietal lobe. Bovie electrocautery was used to dissect the subcutaneous tissue down to the periosteum. Periosteal elevator was used to expose the cranium, and self-retaining retractors were placed. A impregnating helper was used to make 2 agustin holes and then a craniotome used to turn the bone flap. The dura was then opened, and underneath there was subacute and chronic subdural hematoma with some membrane formation. Coagulation was used to coagulate the membrane that was mostly on the inner surface, and then multiple rounds of irrigation were used to remove the clot which was irrigated until the drainage came back almost completely clear. The entire convexity of the brain could be visualized, and there was no evidence of any bleeding. After multiple rounds of irrigation, a subdural drain was placed through the bur hole and left the subdural space and tunneled through the skin and secured to the surface with 3-0 nylon suture. The dura was then closed with interrupted 4-0 nylon sutures, and Duragen was placed over the dura.The bone flap was replaced with cranial plates and screws to affix the bone flap to the skull. The galea was closed with 2-0 Vicryl sutures and the skin with kameron. The patient's head was then turned to the right side, and a frontoparietal incision, approximate 1 inch, was made through the skin down to the bone. Self- retaining retractor was placed. A impregnating helper was used to create a bur hole. The dura was then coagulated with bipolar electrocautery and then opened with an 11 blade knife. Dark fluid came forth under slight pressure consistent with chronic subdural hematoma. Multiple rounds of irrigation were injected in the subdural space until the fluid came back draining clearly. The hematoma appeared to be evacuated, and there did not appear to be significant membrane present. A subdural drain was placed in the subdural space and tunneled through the skin and secured with 3-0 nylon suture at the skin. A bur hole cover was placed over the anterior bur hole and secured with screws. The incisions were then closed with 2-0 Vicryl sutures in the galea and kameron. Sterile dressing was placed on both incisions, and the drains were connected to a drainage bag. The patient was awakened, extubated, and taken to recovery. Sponge, needle, and cottonoid count were reported correct at the end of the case. Dictated By: HENNA GREENFIELD MD, LG/SAMAN Conf#: [id number] DID#: [id number] LAUREL
[2016-04-29 06:08] LABS: ADD SCAN DIFF NO
[2016-04-29 06:15] LABS: BASOPHILS % 0.3 % (0.0-2.0); EOSINOPHILS # 0.1 10^3/ul (0.0-0.5); EOSINOPHILS % 1.1 % (0.0-7.0); HEMATOCRIT 35.1 % (42.0-52.0); HEMOGLOBIN 11.9 g/dl (14.0-18.0); LYMPHOCYTES # 1.1 10^3/ul (0.8-2.9); LYMPHOCYTES % 9.5 % (15.0-51.0); MEAN CORPUSCULAR HEMOGLOBIN 29.4 pg (29.0-33.0); MEAN CORPUSCULAR HGB CONC 33.9 g/dl (32.0-37.0); MEAN CORPUSCULAR VOLUME 86.7 fl (82.0-101.0); MEAN PLATELET VOLUME 10.2 fl (7.4-10.4); MONOCYTE # 0.9 10^3/ul (0.3-0.9); MONOCYTES % 7.3 % (0.0-11.0); NEUTROPHIL # 9.8 10^3/ul (1.6-7.5); NEUTROPHILS % 81.5 % (39.0-77.0); PLATELET COUNT 185 10^3/UL (140-415); RED BLOOD COUNT 4.05 10^6/ul (4.70-6.10); RED CELL DISTRIBUTION WIDTH 12.8 % (11.5-14.5)
[2016-04-29] MEDS: CEFAZOLIN 2 GM/50 ML (PMX) 50 ML IVPB SCH (06:24)
[2016-04-29 06:41] LABS: POTASSIUM 3.4 mmol/L (3.5-5.1)
[2016-04-29 06:43] LABS: CREATININE 0.62 mg/dl (0.61-1.24)
[2016-04-29 06:44] LABS: CALCIUM 8.3 mg/dl (8.4-10.2)
[2016-04-29] MEDS: PANTOPRAZOLE (EC) 40 MG TAB PO SCH ×2 (08:00→08:44)
[2016-04-29] MEDS: D5-NS + KCL 20 MEQ 1,000 ML IV SCH ×2 (08:21→17:48)
[2016-04-29] MEDS: DEXTROSE 5%-0.45% NACL 1,000 ML IV SCH (08:21)
[2016-04-29] MEDS: LEVETIRACETAM 500 MG TAB PO SCH ×2 (08:44→20:11)
--- NOTE | 2016-04-29 09:24 | RADRPT ---
PROCEDURE: CT Brain without contrast. CLINICAL INDICATION: 81-year-old male status post bilateral craniotomy. TECHNIQUE: A CT of the brain was performed on a high-resolution General Endoclearpeed CT [facility] utilizing a low dose technique with axial imaging from the skull base through the vertex withou t IV contrast. Multiplanar reformatted images were made. Images were reviewed on a PACS workstatio n. The CTDIvol is 39.6 mGy and the DLP is 713.5 mGycm. One or more of the following dose reduction techniques were used: - Automated exposure control. - Adjustment of the mA and/or kV according to patient size. Use of iterative reconstruction technique. COMPARISON: CT brain 04/29/2016. FINDINGS: The fourth ventricle is normal in size. The third and lateral ventricles are normal in size and con figuration. There is equivocal low attenuation in the cortex of the right frontal lobe with loss of urena-white matter differentiation. There is pneumocephalus with evidence of interval bilateral pteri on craniectomies. There is a subdural catheter the extra-axial space adjacent to the right parietal lobe. There is a left-sided subdural catheter in the extra-axial space in the with its tip adjacent to the left frontal lobe. There is a residual of mixed density right parietal acute right subdural hematoma which decreased in size compared to the earlier study. The acute component measures up to 3.6 mm along the inner table of the right parietal bone. There is a mixed density left subdural hematoma and left pneumocephalus extending along the margins of the left frontal temporal and parietal lobes. Of the acute component measures up to 5.5 mm in wi dth adjacent to the squared muscle portion of the left temporal bone. It measures up to 5.8 mm in w idth at the level of the inner table of the left parietal bone. The visible portions of the globes and extraocular muscles are normal. The paranasal sinuses are cl ear. The mastoid air cells and internal auditory canals are normal. The bony calvarium is intact. There are skin kameron adjacent to the craniectomy sites with subcutaneous emphysema and soft tissue swelling. IMPRESSION: 1. Equivocal frontal lobe edema which can be evaluated with an MRI without contrast if needed. Sta tus post bilateral pterional craniotomies with marked interval improvement of the bilateral mixed de nsity subdural hematomas. Is identified on April 27, 2016. 2. Bilateral subdural drainage catheters are now in place and well positioned. 3. Pneumocephalus. 4. Surgical skin kameron and soft tissue swelling with subcutaneous emphysema from recent bilateral craniotomies. 5. 14 mm retention cyst in the right maxillary sinus. 6. There are vascular calcifications in the cavernous and supracavernous portions of the internal ca rotid arteries. 7. Findings were discussed with Dr. Cohn. RPTAT:AAJJ Physician Sixto Date Time Electronically viewed and signed by Matthew Kitchen Physician on 04/29/2016 09:23 JOSEPH/
--- NOTE | 2016-04-29 10:11 | PN ---
Date/Time of Note Date/Time of Note DATE: 04/29/16 TIME: 10:01 Assessment/Plan VTE Prophylaxis VTE Prophylaxis Intervention: SCD's Lines/Catheters IV Catheter Type (from [facility]): Saline Lock Urinary Cath still in place: Yes Reason Cath still needed: other (indicate) Assessment/Plan Chief Complaint/Hosp Course ASSESSMENT AND PLAN: 1. Intracranial hemorrhage with bilateral subdural hematomas with midline shift. Neurosurgery with Dr. Cohn has been consulted. Postop day #1, Status post bilateral pterional craniotomies and bilateral subdural drainage catheters CT of the brain demonstrated marked interval improvement of the bilateral mixed density subdural hematomas post craniotomies follow up with neurosurgery recommendations for surgical intervention. Blood pressure is currently stable. 2. Normocytic anemia. This is very mild. We will monitor. 3. Hypernatremia. Will treat with IV fluids. The patient will be n.p.o. 4. Prophylaxis. Sequential compression devices. We will continue monitor patient closely for recommendation management treatment as clinical course Problems: Subjective 24 Hr Interval Summary Free Text/Dictation Postop day #1 Denies of any chest pain or shortness of breath Tolerating p.o. intake Exam/Review of Systems Vital Signs Vitals Vital Signs Date Time Temp Pulse Resp B/P Pulse Ox O2 Delivery O2 Flow Rate FiO2 04/29/16 08:00 73 04/29/16 06:00 19 77/62 99 Nasal Cannula 04/29/16 02:14 3.0 04/29/16 00:00 97.7 Intake and Output 04/28/16 04/28/16 04/29/16 15:00 23:00 07:00 Intake Total 800 ml 1300 ml 855 ml Output Total 550 ml 715 ml 540 ml Balance 250 ml 585 ml 315 ml Exam General: The patient is well-developed, Not in acute distress. HEENT: Atraumatic, normocephalic. The pupils are equal and round . Drain 2 and lateral aspect of the skull Neck: Supple with full range of motion. Chest: Normal expansion of the thorax during inspiration Lungs: Clear to auscultation bilaterally Heart: Normal S1-S2, Regular rhythm and rate. Abdomen: Soft , nontender, nondistended , bowel sounds are present. Extremities: Symmetrical upper extremity weakness, no edema no cyanosis Neurologic: Normal mental status,The patient is awake, alert Results Result Diagram: 04/29/16 0556 04/29/16 0556 Results 24 hrs Laboratory Tests Test 04/29/16 05:56 Anion Gap 11 Basophils # 0.0 Basophils % 0.3 Blood Urea Nitrogen 8 Calcium Level 8.3 L Carbon Dioxide Level 26 Chloride Level 103 Creatinine 0.62 Eosinophils # 0.1 Eosinophils % 1.1 Glucose Level 110 Hematocrit 35.1 L Hemoglobin 11.9 L Lymphocytes # 1.1 Lymphocytes % 9.5 L Mean Corpuscular Hemoglobin 29.4 Mean Corpuscular Hemoglobin Concent 33.9 Mean Corpuscular Volume 86.7 Mean Platelet Volume 10.2 Monocytes # 0.9 Monocytes % 7.3 Neutrophils # 9.8 H Neutrophils % 81.5 H Nucleated Red Blood Cells # 0.0 Nucleated Red Blood Cells % 0.0 Platelet Count 185 Potassium Level 3.4 L Red Blood Count 4.05 L Red Cell Distribution Width 12.8 Sodium Level 137 White Blood Count 12.0 #H Medications Medications Current Medications Dextrose/Sodium Chloride (D5-1/2ns) 1,000 ml @ 100 mls/hr Q10H IV Last administered on 04/28/16 13:39; Admin Dose 100 MLS/HR; Start 04/27/16 at 16:54 Ondansetron HCl (Zofran Inj) 4 mg Q6H PRN IV NAUSEA AND/OR VOMITING Last administered on 04/29/16 00:25; Admin Dose 4 MG; Start 04/27/16 at 17:00 Acetaminophen (Tylenol Tab) 650 mg Q6H PRN PO PAIN LEVEL 1-3 OR FEVER; Start at 17:00 Acetaminophen/ Hydrocodone Bitart ([place] (5/325)) 1 tab Q6H PRN PO MODERATE PAIN LEVEL 4-6; Start 04/27/16 at 17:00 Morphine Sulfate (morphine) 2 mg Q4H PRN IV SEVERE PAIN LEVEL 7-10; Start at 17:00 Docusate Sodium (Colace) 100 mg Q12H PRN PO CONSTIPATION; Start 04/27/16 at 17: 00 Labetalol HCl (Labetalol) 20 mg Q2 PRN IV SBP>170; Start 04/27/16 at 17:00 Levetiracetam 500 mg 500 mg BID PO Last administered on 04/29/16 08:44; Admin Dose 500 MG; Start 04/27/16 at 21:00 Cefazolin Sodium/ Dextrose (Ancef 2 Gm/50 ml (Pmx)) 50 ml @ 100 mls/hr Q8H IVPB Last administered on 04/29/16 06:24; Admin Dose 100 MLS/HR; Start 04/28/16 at 22:30; Stop 04/29/16 at 22:29 Morphine Sulfate (morphine) 2 mg Q2H PRN IV PAIN LEVEL 6-10 Last administered on 04/29/16 08:19; Admin Dose 2 MG; Start 04/28/16 at 22:30 Acetaminophen/ Hydrocodone Bitart ([place] (5/325)) 1 tab Q6H PRN PO PAIN LEVEL 6 -10; Start 04/28/16 at 22:30 Acetaminophen (Tylenol Tab) 650 mg Q6H PRN PO PAIN AND OR ELEVATED TEMP; Start 04/28/16 at 22:30 Ondansetron HCl (Zofran Inj) 4 mg Q6H PRN IV NAUSEA AND/OR VOMITING; Start 04/28 at 22:30 Pantoprazole 40 mg 40 mg DAILY@06 PO Last administered on 04/29/16 08:44; Admin Dose 40 MG; Start 04/29/16 at 06:00 Potassium Chloride/Dextrose/ Sod Cl (D5-NS + KCl 20 Meq) 1,000 ml @ 100 mls/hr Q10H IV Last administered on 04/29/16 08:21; Admin Dose 100 MLS/HR; Start at 22:10 Phenol (Cepastat Lozenge) 1 lozenge PRN PRN MT SORE THROAT; Start 04/28/16 at 22 :30 KENNY INFANTE MD Apr 29, 2016 10:11
[2016-04-29] MEDS: CEFAZOLIN 1 GM/50 ML (PMX) 50 ML IVPB SCH ×2 (14:02→21:41)
[2016-04-29] MEDS: HYDROCODONE/APAP (5/325) TAB PO PRN (17:41)
--- NOTE | 2016-04-29 17:42 | PN ---
Date/Time of Note Date/Time of Note DATE: 04/29/16 TIME: 17:39 Assessment/Plan Lines/Catheters IV Catheter Type (from [facility]): A Line Crockett in Place (from [facility]): Yes Assessment/Plan Chief Complaint/Hosp Course POD # 1 s/p bilateral hematoma evacuation. Doing well. Will D/c drains tomorrow. Cont. ICU observation. Problems: Subjective 24 Hr Interval Summary Patient doing well. Denies significant headache, nausea, dizziness or weakness. Only complains of some jaw pain. Per granddaughter neurologically at baseline. Exam/Review of Systems Vital Signs Vitals Vital Signs Date Time Temp Pulse Resp B/P Pulse Ox O2 Delivery O2 Flow Rate FiO2 04/29/16 16:00 74 04/29/16 15:00 19 106/58 98 Room Air 04/29/16 12:00 97.4 04/29/16 02:14 3.0 Intake and Output 04/28/16 04/28/16 04/29/16 15:00 23:00 07:00 Intake Total 800 ml 1300 ml 855 ml Output Total 550 ml 715 ml 590 ml Balance 250 ml 585 ml 265 ml Exam Constitutional: alert, oriented Head: normocephalic, other (incisions C/D/I) Neurological: AGENT PRODUCER II-XII intact, nl mental status, nl speech, nl strength Results Result Diagram: 04/29/16 0556 04/29/[address] shows good hematoma evacuation bilaterally. HENNA GREENFIELD MD Apr 29, 2016 17:42
[2016-04-30] VITALS (19 sets, daily range): BP systolic 94–121; BP diastolic 39–96; PULSE 63–84; RESP 12–20
[2016-04-30 05:42] LABS: ADD SCAN DIFF NO; BASOPHILS % 0.3 % (0.0-2.0); EOSINOPHILS # 0.4 10^3/ul (0.0-0.5); EOSINOPHILS % 3.9 % (0.0-7.0); HEMATOCRIT 36.8 % (42.0-52.0); HEMOGLOBIN 12.5 g/dl (14.0-18.0); LYMPHOCYTES # 1.4 10^3/ul (0.8-2.9); LYMPHOCYTES % 12.4 % (15.0-51.0); MEAN CORPUSCULAR HEMOGLOBIN 28.9 pg (29.0-33.0); MEAN CORPUSCULAR VOLUME 85.2 fl (82.0-101.0); MEAN PLATELET VOLUME 9.6 fl (7.4-10.4); MONOCYTE # 1.2 10^3/ul (0.3-0.9); MONOCYTES % 10.9 % (0.0-11.0); NEUTROPHILS % 72.1 % (39.0-77.0); PLATELET COUNT 214 10^3/UL (140-415); RED BLOOD COUNT 4.32 10^6/ul (4.70-6.10); RED CELL DISTRIBUTION WIDTH 12.9 % (11.5-14.5); WHITE BLOOD COUNT 11.1 10^3/ul (4.8-10.8)
[2016-04-30] MEDS: CEFAZOLIN 1 GM/50 ML (PMX) 50 ML IVPB SCH ×3 (06:00→22:02)
[2016-04-30] MEDS: PANTOPRAZOLE (EC) 40 MG TAB PO SCH (06:00)
[2016-04-30 06:28] LABS: POTASSIUM 3.7 mmol/L (3.5-5.1)
[2016-04-30 06:30] LABS: CREATININE 0.72 mg/dl (0.61-1.24)
[2016-04-30 06:31] LABS: CALCIUM 8.9 mg/dl (8.4-10.2); MAGNESIUM 1.9 mg/dl (1.7-2.5)
[2016-04-30] MEDS: LEVETIRACETAM 500 MG TAB PO SCH ×2 (08:19→20:27)
--- NOTE | 2016-04-30 08:25 | PN ---
Date/Time of Note Date/Time of Note DATE: 04/30/16 TIME: 08:23 Assessment/Plan Lines/Catheters IV Catheter Type (from [facility]): A Line Crockett in Place (from [facility]): Yes Assessment/Plan Chief Complaint/Hosp Course POD # 2 s/p bilateral hematoma evacuation. Doing well. Subdural drains D/c'd. [facility] transfer to [facility]. D/C Cro[place], H/L IV, PT, ambulate with assistance. Problems: Subjective 24 Hr Interval Summary Patient doing well. Only reports some incisional pain. Denies nausea, vomiting, or dizziness. Exam/Review of Systems Vital Signs Vitals Vital Signs Date Time Temp Pulse Resp B/P Pulse Ox O2 Delivery O2 Flow Rate FiO2 04/30/16 07:00 63 17 103/64 98 Room Air 04/30/16 04:00 97.4 04/29/16 20:12 21 04/29/16 02:14 3.0 Intake and Output 04/29/16 04/29/16 04/30/16 15:00 23:00 07:00 Intake Total 630 ml 240 ml Output Total 990 ml 915 ml 965 ml Balance -360 ml -675 ml -965 ml Exam Constitutional: alert, oriented, well developed Psych: no complaints Neurological: SURGICAL NURSE PRACTITIONER II-XII intact, nl mental status, nl speech, nl strength Skin: other (incisions C/DI; drains D/c'd) Results Result Diagram: 04/30/16 0525 04/30/16 0525 HENNA GREENFIELD MD Apr 30, 2016 08:25
--- NOTE | 2016-04-30 10:18 | PN ---
Date/Time of Note Date/Time of Note DATE: 04/30/16 TIME: 10:05 Assessment/Plan VTE Prophylaxis VTE Prophylaxis Intervention: SCD's Lines/Catheters IV Catheter Type (from [facility]): A Line Urinary Cath still in place: Yes Reason Cath still needed: other (indicate) Assessment/Plan Chief Complaint/Hosp Course ASSESSMENT AND PLAN: 1. Intracranial hemorrhage with bilateral subdural hematomas with midline shift. Neurosurgery with Dr. Cohn has been consulted. Postop day #2 , Status post bilateral pterional craniotomies and bilateral subdural drainage catheters (removed on 04/30/2016) CT of the brain demonstrated marked interval improvement of the bilateral mixed density subdural hematomas post craniotomies follow up with neurosurgery recommendations for surgical intervention. Blood pressure is currently stable. 2. Normocytic anemia. Stable, We will monitor. 3. Hypernatremia. Stable 4. Prophylaxis. Sequential compression devices. We will continue monitor patient closely for recommendation management treatment as clinical course Problems: Subjective 24 Hr Interval Summary Free Text/Dictation Status post removal of drains Patient denies of any chest pain or shortness of breath Denies of any upper and lower extremity weakness Denies of any change in visual acuity Tolerating oral intake Exam/Review of Systems Vital Signs Vitals Vital Signs Date Time Temp Pulse Resp B/P Pulse Ox O2 Delivery O2 Flow Rate FiO2 04/30/16 08:00 65 14 105/65 96 Room Air 04/30/16 04:00 97.4 04/29/16 20:12 21 04/29/16 02:14 3.0 Intake and Output 04/29/16 04/29/16 04/30/16 15:00 23:00 07:00 Intake Total 630 ml 240 ml Output Total 990 ml 915 ml 965 ml Balance -360 ml -675 ml -965 ml Exam General: The patient is well-developed, Not in acute distress. HEENT: Atraumatic, minimal bleeding from the right side of skull/surgical site, no evidence of hematoma. The pupils are equal and round . Neck: Supple with full range of motion. Chest: Normal expansion of the thorax during inspiration Lungs: Clear to auscultation bilaterally Heart: Normal S1-S2, Regular rhythm and rate. Abdomen: Soft , nontender, nondistended , bowel sounds are present. Extremities: Normal to inspection, no edema no cyanosis Neurologic: Normal mental status,The patient is awake, alert and oriented . Results Result Diagram: 04/30/16 0504/30/16 0525 Results 24 hrs Laboratory Tests Test 04/30/16 05:25 Anion Gap 14 Basophils # 0.0 Basophils % 0.3 Blood Urea Nitrogen 8 Calcium Level 8.9 Carbon Dioxide Level 27 Chloride Level 101 Creatinine 0.72 Eosinophils # 0.4 Eosinophils % 3.9 Glucose Level 101 Hematocrit 36.8 L Hemoglobin 12.5 L Lymphocytes # 1.4 Lymphocytes % 12.4 L Magnesium Level 1.9 Mean Corpuscular Hemoglobin 28.9 L Mean Corpuscular Hemoglobin Concent 34.0 Mean Corpuscular Volume 85.2 Mean Platelet Volume 9.6 Monocytes # 1.2 H Monocytes % 10.9 Neutrophils # 8.0 H Neutrophils % 72.1 Nucleated Red Blood Cells # 0.0 Nucleated Red Blood Cells % 0.0 Platelet Count 214 Potassium Level 3.7 Red Blood Count 4.32 L Red Cell Distribution Width 12.9 Sodium Level 138 White Blood Count 11.1 H Medications Medications Current Medications Ondansetron HCl (Zofran Inj) 4 mg Q6H PRN IV NAUSEA AND/OR VOMITING Last administered on 04/29/16 00:25; Admin Dose 4 MG; Start 04/27/16 at 17:00 Acetaminophen (Tylenol Tab) 650 mg Q6H PRN PO PAIN LEVEL 1-3 OR FEVER; Start at 17:00 Acetaminophen/ Hydrocodone Bitart ([place] (5/325)) 1 tab Q6H PRN PO MODERATE PAIN LEVEL 4-6 Last administered on 04/29/16 17:41; Admin Dose 1 TAB; Start 04/27 at 17:00 Morphine Sulfate (morphine) 2 mg Q4H PRN IV SEVERE PAIN LEVEL 7-10 Last administered on 04/30/16 08:19; Admin Dose 2 MG; Start 04/27/16 at 17:00 Docusate Sodium (Colace) 100 mg Q12H PRN PO CONSTIPATION Last administered on 20:11; Admin Dose 100 MG; Start 04/27/16 at 17:00 Labetalol HCl (Labetalol) 20 mg Q2 PRN IV SBP>170; Start 04/27/16 at 17:00 Levetiracetam (Keppra) 500 mg BID PO Last administered on 04/30/16 08:19; Admin Dose 500 MG; Start 04/27/16 at 21:00 Morphine Sulfate (morphine) 2 mg Q2H PRN IV PAIN LEVEL 6-10 Last administered on 04/29/16 08:19; Admin Dose 2 MG; Start 04/28/16 at 22:30 Acetaminophen/ Hydrocodone Bitart ([place] (5/325)) 1 tab Q6H PRN PO PAIN LEVEL 6 -10; Start 04/28/16 at 22:30 Acetaminophen (Tylenol Tab) 650 mg Q6H PRN PO PAIN AND OR ELEVATED TEMP; Start 04/28/16 at 22:30 Ondansetron HCl (Zofran Inj) 4 mg Q6H PRN IV NAUSEA AND/OR VOMITING; Start 04/28 at 22:30 Pantoprazole (Protonix Tab) 40 mg DAILY@06 PO Last administered on 04/30/16 06: 00; Admin Dose 40 MG; Start 04/29/16 at 06:00 Phenol 1 lozenge 1 lozenge PRN PRN MT SORE THROAT; Start 04/28/16 at 22:30 Cefazolin Sodium (Ancef 1 Gm/50 ml (Pmx)) 50 ml @ 100 mls/hr Q8 IVPB Last administered on 04/30/16 06:00; Admin Dose 100 MLS/HR; Start 04/29/16 at 14:00; Stop 05/01/16 at 12:00 KENNY INFANTE MD Apr 30, 2016 10:18
[2016-04-30] MEDS: HYDROCODONE/APAP (5/325) TAB PO PRN (20:19)
[2016-05-01] VITALS (9 sets, daily range): BP systolic 91–108; BP diastolic 54–60; PULSE 68–80; RESP 18–20
[2016-05-01] MEDS: PANTOPRAZOLE (EC) 40 MG TAB PO SCH (05:26)
[2016-05-01] MEDS: CEFAZOLIN 1 GM/50 ML (PMX) 50 ML IVPB SCH (05:26)
--- NOTE | 2016-05-01 08:07 | PN ---
Date/Time of Note Date/Time of Note DATE: 05/01/16 TIME: 08:04 Assessment/Plan Lines/Catheters IV Catheter Type (from [facility]): Saline Lock Crockett in Place (from [facility]): No Assessment/Plan Chief Complaint/Hosp Course POD # 3 s/p bilateral hematoma evacuation. Doing well. Can D/c home today. Follow-up in in clinic in 7-10 days for staple removal (call my office). Incision dressing can be removed in 2 days, incision should be washed with damp cloth, do not soak. D/C instructions d/w patient. cont. Keppra x 7 days total. Problems: Subjective 24 Hr Interval Summary Patient doing well. Denies headache, nausea, dizziness, or focal weakness. Denies fever or chills. Exam/Review of Systems Vital Signs Vitals Vital Signs Date Time Temp Pulse Resp B/P Pulse Ox O2 Delivery O2 Flow Rate FiO2 05/01/16 07:24 98.5 68 18 108/60 98 04/30/16 12:00 Room Air 04/29/16 20:12 21 04/29/16 02:14 3.0 Intake and Output 04/30/16 04/30/16 05/01/16 15:00 23:00 07:00 Intake Total 280 ml 850 ml 500 ml Output Total 65 ml 600 ml Balance 215 ml 850 ml -100 ml Exam Constitutional: alert, oriented, well developed Head: normocephalic, other (incisions C/D/I. ) Neurological: MECHANICAL ENGINEERING INTERN II-XII intact, nl mental status, nl speech, nl strength Results Result Diagram: 04/30/16 0525 04/30/16 0525 HENNA GREENFIELD MD May 01, 2016 08:06
[2016-05-01] MEDS: LEVETIRACETAM 500 MG TAB PO SCH (08:23)
[2016-05-01 12:23] LABS: ADD SCAN DIFF NO
[2016-05-01 12:29] LABS: BASOPHIL # 0.1 10^3/ul (0.0-0.1); BASOPHILS % 0.5 % (0.0-2.0); EOSINOPHILS # 0.6 10^3/ul (0.0-0.5); EOSINOPHILS % 5.6 % (0.0-7.0); HEMATOCRIT 36.8 % (42.0-52.0); HEMOGLOBIN 12.5 g/dl (14.0-18.0); LYMPHOCYTES # 1.4 10^3/ul (0.8-2.9); MEAN CORPUSCULAR HEMOGLOBIN 29.5 pg (29.0-33.0); MEAN CORPUSCULAR VOLUME 86.8 fl (82.0-101.0); MEAN PLATELET VOLUME 9.9 fl (7.4-10.4); MONOCYTE # 1.1 10^3/ul (0.3-0.9); MONOCYTES % 10.1 % (0.0-11.0); NEUTROPHIL # 7.3 10^3/ul (1.6-7.5); NEUTROPHILS % 70.5 % (39.0-77.0); PLATELET COUNT 221 10^3/UL (140-415); RED BLOOD COUNT 4.24 10^6/ul (4.70-6.10); RED CELL DISTRIBUTION WIDTH 12.8 % (11.5-14.5); WHITE BLOOD COUNT 10.4 10^3/ul (4.8-10.8)
[2016-05-01 12:39] LABS: POTASSIUM 4.2 mmol/L (3.5-5.1)
[2016-05-01 12:42] LABS: CREATININE 0.69 mg/dl (0.61-1.24)
[2016-05-01 12:43] LABS: CALCIUM 9.1 mg/dl (8.4-10.2)
--- NOTE | 2016-05-01 14:07 | PDOCDIS ---
Discharge Instructions CONDITION Patient Condition: Stable HOME CARE INSTRUCTIONS: Special Diet: Regular Diet ACTIVITY: Activity Restrictions: Special Exercises FOLLOW UP/APPOINTMENTS Appointments Follow up with neurosurgery in 2 weeks KENNY INFANTE MD May 01, 2016 14:07
[2016-05-01] MEDS ORDERED: LEVE-5 PO (14:08)
[2016-05-01] MEDS ORDERED: ACET325T33 PO (14:08)
[2016-05-01] MEDS ORDERED: HYDR-3671 PO (14:08)
[2016-05-01] MEDS ORDERED: PANT40TA4 PO (14:08)
--- NOTE | 2016-05-01 16:32 | DS ---
DATE OF ADMISSION: 04/27/2016 DATE OF DISCHARGE: 05/01/2016 HELMINTHOLOGY TEACHER: Jeremy Cohn MD, neurosurgery. PROCEDURES: 1. Left craniotomy for subdural evacuation of hematoma. 2. Right bur hole for subdural evacuation of hematoma. DISCHARGE DIAGNOSES: 1. Bilateral subdural hematomas, status post left craniotomy for subdural evacuation of hematoma an d right bur hole for subdural evacuation of hematoma. Follow with neurosurgery as an outpatient. 2. Normocytic anemia, stable. 3. Hypernatremia, stable. 4. Leukocytosis, likely reactive, resolved. 5. Debility. The patient will be transferred to care home facility. MEDICATIONS: 1. Tylenol. 2. Colace. 3. [place]. 4. Keppra. 5. Protonix. 6. Zofran. 7. P.r.n. medication hydralazine 25 mg 1 tab p.o. q. 8 hours p.r.n. DIET: Cardiac. DISCHARGE INSTRUCTIONS: SCD for lower extremities in bed. Follow up with neurosurgery, Dr. Alyse jackson, in [address] Jeremy Cohn's instructions for general postoperative instructions. LABORATORY DATA: Sodium 138, potassium 4.2, chloride 101, bicarbonate 27, BUN 14, creatinine 0.69, glucose 91, calcium 9.1. Hemoglobin A1c 5.5. Triglycerides 123, total cholesterol 158, LDL 97, HDL 37. WBC 10.4, hemoglobin 12.5, hematocrit 36.8, platelets 221. HOSPITAL COURSE: This is a pleasant 81-year-old gentleman with no significant past medical history. The patient presented to [facility] having headache and weakness in his left low er extremity which occurred on 04/27/2016. His granddaughter noted that he was walking abnormally w ith a gait disturbance. The patient presented to the ER. He had a CT of the head that showed acute bilateral subdural hematomas with minimal midline shift to the right side. Neurosurgery was consul alicia. The patient was admitted to ICU. His blood pressure was found to be normal. MRI of the brain was obtained which showed bilateral subdural hematomas with mixed signal intensity of the left david ection consistent with acute upon subacute to chronic blood products, the homogeneous signal intensi ty within the right subdural hematoma is consistent with subacute to chronic timing. The appearance is stable compared to CT from earlier the same day allowing for different modalities. The mass eff ect upon the cerebral hemisphere causes an approximately 2 mm of the midline shift to the right. Th ere is no evidence of hydrocephalus, no intraparenchymal contusion was present, no ischemic infarct was demonstrated. Neurosurgery evaluation was obtained and patient was taken to OR for left craniotomy for subdural ev acuation of hematoma, and right bur hole for subdural evacuation of hematoma on 04/28/2016. On 09/2016, the drain was removed by neurosurgery and patient was transferred to telemetry floor in the afternoon, which he has been doing well. He was seen and evaluated by physical therapy, although th ere is still some gait instability and debility therefore, patient will be transferred to skilled [facility] facility for further evaluation and physical therapy and rehabilitation. Vitals: Temperature 99.2, pulse 77, respirations 20, blood pressure 91/60, oxygen saturation 97% in room air. CONDITION AT TIME OF DISCHARGE: Stable. Dictated By: KENNY MARAVILLA/NTS Conf#: [id number] DID#: [id number] CC: [facility];*EndCC*
== END 2016-05-01 17:20 | DRG 26 ==
LOC: E/R 14:30 → ICU 16:57 → TEL 04-30 12:41
PROVIDERS: ADMIT Internal Medicine; ATTEND Internal Medicine
PROC: 00C40ZZ Extirpation of Matter from Intracranial Subdural Space, Open Approach (ICD-10-PCS; principal; 2016-04-27)
DX: I62.02 Nontraumatic subacute subdural hemorrhage (principal); E87.0 Hyperosmolality and hypernatremia; I62.03 Nontraumatic chronic subdural hemorrhage; X58.XXXA Exposure to other specified factors, initial encounter; D64.9 Anemia, unspecified; D72.828 Other elevated white blood cell count; R53.81 Other malaise
CPT/HCPCS: 70450; 70551; 71010; 80048; 80053; 80061; 81003; 83036; 83735; 84100; 84443; 84484; 85025; 85576; 85610; 85730; 86850; 86900; 86901; 86920; 87081; 93005; 97162; C1713; J0690; J1644; J2250; J2270; J2370; J2405; J2710; J3010; J3480; J7042

== ENCOUNTER 2017-10-19 19:23 | Emergency (ER) | END 2017-10-19 23:51 | disposition home or self-care (01) ==

== ENCOUNTER 2018-06-14 20:22 | Emergency (ER) | payer OTHER ==
[~2018-06-14] VITALS: Ht 165.1 cm; Wt 68.4 kg
[~2018-06-14 20:22] MED LIST changes: +ASCO500C7 PO; -DOXY100T20 PO; +MECL-77 PO; +ONDA4TAB14 PO; -THO25 PO; -UDROBDM PO
[2018-06-14 20:28] VITALS: Ht 165.1 cm; Wt 68.4 kg
[2018-06-15] MEDS ORDERED: SOD CHLORIDE 0.9% 500 ML IV STA (00:40)
[2018-06-15] MEDS ORDERED: MECLIZINE 12.5 MG TAB PO ONE (03:00)
[2018-06-15] MEDS ORDERED: MECL12.574 PO (03:26)
[2018-06-15 03:37] VITALS: BP 136/90; PULSE 65; RESP 18
--- NOTE | 2018-07-05 21:09 | ERD ---
ER Documentation Chief Complaint Chief Complaint DIZZINESS X3DAYS; NO CP; STATES MEDS NOT WORKING HPI Is a very pleasant 83-year-old male with a history of vertigo says is been feeling more vertiginous over the past 2 days. He says meclizine is not working. Denies fevers chills nausea vomiting. Denies any other current complaints. Denies any chest pain. Denies any palpitations. Denies any focal neurologic complaints. Denies any weakness. Denies any dysarthria. ROS All systems reviewed and are negative except as per history of present illness. Medications Home Meds Active Scripts Meclizine Hcl* (Antivert*) 12.5 Mg Tab, 25 MG PO Q6H PRN for DIZZINESS, #20 TAB Prov:GLADYS PURCELL 06/15/18 Ondansetron (Ondansetron Odt) 4 Mg Tab.rapdis, 4 MG PO Q6H PRN for NAUSEA AND/OR VOMITING, #10 TAB Prov:CHAVA HENDRICKS DO 10/20/17 Meclizine Hcl* (Meclizine Hcl*) 25 Mg Tablet, 25 MG PO Q8H PRN for DIZZINESS, #20 TAB Prov:CHAVA HENDRICKS DO 10/20/17 Reported Medications Ascorbic Acid* (Vitamin C*) 500 Mg Capsule.sa, 500 MG PO DAILY, CAP 10/19/17 Allergies Allergies: Coded Allergies: No Known Allergy (Unverified , 10/19/17) PMhx/Soc History of Surgery: Yes (R arm, head, R eye) Anesthesia Reaction: No Hx Neurological Disorder: No Hx Respiratory Disorders: Yes (Bronchitis) Hx Cardiac Disorders: Yes (HLD) Hx Psychiatric Problems: No Hx Miscellaneous Medical Probl: Yes (SDH) Hx Alcohol Use: No Hx Substance Use: No Hx Tobacco Use: No Smoking Status: Never smoker Physical Exam Physical Exam Const: No acute distress Head: Atraumatic Eyes: Normal Conjunctiva ENT: Normal External Ears, Nose and Mouth. Neck: Full range of motion. No meningismus. Resp: Clear to auscultation bilaterally Cardio: Regular rate and rhythm, no murmurs Abd: Soft, non tender, non distended. Normal bowel sounds Skin: No petechiae or rashes Back: No midline or flank tenderness Ext: No cyanosis, or edema Neur: Awake and alert Psych: Normal Mood and Affect Results 24 hrs Laboratory Tests Test 06/15/18 00:59 White Blood Count 9.7 10^3/ul Red Blood Count 5.44 10^6/ul Hemoglobin 15.4 g/dl Hematocrit 46.1 % Mean Corpuscular Volume 84.7 fl Mean Corpuscular Hemoglobin 28.3 pg Mean Corpuscular Hemoglobin Concent 33.4 g/dl Red Cell Distribution Width 12.3 % Platelet Count 181 10^3/UL Mean Platelet Volume 10.2 fl Immature Granulocytes % 0.400 % Neutrophils % 58.5 % Lymphocytes % 26.0 % Monocytes % 8.8 % Eosinophils % 5.5 % Basophils % 0.8 % Nucleated Red Blood Cells % 0.0 /100WBC Immature Granulocytes # 0.040 10^3/ul Neutrophils # 5.7 10^3/ul Lymphocytes # 2.5 10^3/ul Monocytes # 0.9 10^3/ul Eosinophils # 0.5 10^3/ul Basophils # 0.1 10^3/ul Nucleated Red Blood Cells # 0.0 10^3/ul Prothrombin Time 12.6 Sec Prothrombin Time Ratio 1.0 INR International Normalized Ratio 0.93 Activated Partial Thromboplast Time 31.0 Sec Sodium Level 142 mmol/L Potassium Level 3.9 mmol/L Chloride Level 104 mmol/L Carbon Dioxide Level 29 mmol/L Anion Gap 9 Blood Urea Nitrogen 14 mg/dl Creatinine 0.83 mg/dl Est Glomerular Filtrat Rate mL/min mL/min Glucose Level 98 mg/dl Calcium Level 9.7 mg/dl Troponin I < 0.012 ng/ml Current Medications Medications Dose Sig/Jeremi Start Time Status Last (Trade) Ordered Route PRN Stop Time Admin Dose Reason Admin Sodium 500 ml @ Q1H STAT 06/15/18 DC 06/15/18 Chloride 500 mls/hr IV 00:40 01:40 06/15/18 01:39 Meclizine 25 mg ONCE ONCE 06/15/18 DC 06/15/18 HCl PO 03:00 03:27 (Antivert) 06/15/18 03:01 Procedures/MDM EKG: Rate/Rhythm: [Normal Sinus Rhythm] QRS, ST, T-waves: [No changes consistent w/ acute ischemia] Impression: [No evidence of ischemia or arrhythmia] Chest X-ray 1V Interpreted by me: Soft Tissue: No acute abnorma lities Bones: No acute abnormalities Mediastinum/Cardiac Silhouette/Lungs: [No acute abnormalities] Medical decision makin-year-old male here with vertigo. Work-up is essentially negative. Given large dose of meclizine with complete resolution of symptoms. Is medically stable for better management. Advise follow-up is. Worse return for worsening symptoms. Departure Diagnosis: Primary Impression: Dizziness Condition: Stable Patient Instructions: Vertigo, Unspecified GLADYS PURCELL July 05, 2018 21:09
== END 2018-06-15 07:03 | disposition home or self-care (01) ==
LOC: E/R 20:22
DX: R42 Dizziness and giddiness (principal); R40.2142 Coma scale, eyes open, spontaneous, at arrival to emergency department; R40.2362 Coma scale, best motor response, obeys commands, at arrival to emergency department; R40.2252 Coma scale, best verbal response, oriented, at arrival to emergency department; R07.9 Chest pain, unspecified
CPT/HCPCS: 70450; 71045; 80048; 84484; 85025; 85610; 85730; 93005; J7040; 36415